=== PATIENT | female | born 1960 | race Caucasian/White ===

== ENCOUNTER 2016-04-11 09:47 | Outpatient (CLI) | payer OTHER ==
[2016-04-11 11:51] LABS: #Basophils 0.1 thou/uL (0.0-0.2); #Eosinphils 0.2 thou/uL (0.0-0.7); #Lymphocytes 2.1 thou/uL (1.20-3.40); #Monocytes 0.6 thou/uL (0.11-0.59); #Neutrophils 5.6 thou/uL (1.40-6.50); %Basophils 1.1 % (0.0-1.0); %Eosinophils 2.1 % (0.0-10.0); Hematocrit 43.9 % (36.0-47.0); Mean Platelet Volume 6.6 fL (7.4-10.4); White Blood Cell (WBC) Count 8.5 thou/uL (4.8-10.8)
[2016-04-11 11:58] LABS: ALT (SGPT) 16 U/L (0-55); AST (SGOT) 18 U/L (5-34); Alkaline Phosphatase 119 U/L (40-150); Anion Gap 15 mmol/L (10-20); BUN (Urea Nitrogen) 18 mg/dL (9.8-20.1); Bilirubin, Total 0.5 mg/dL (0.2-1.2); Calc. Creatinine Clearance 0 mL/min (70-130); Calcium 9.7 mg/dL (7.8-10.44); Carbon Dioxide 26 mmol/L (22-29); Chloride 103 mmol/L (98-107); Estimated GFR-MDRD 65; Globulin 2.9 g/dL (2.4-3.5); LDL Cholesterol, Calculated 139 mg/dL; Protein, Total 7.4 g/dL (6.0-8.3)
== END 2016-04-11 09:48 | disposition home or self-care (01) ==
LOC: HPCALD 09:47
PROVIDERS: ATTEND Physician Assistant
DX: I10 Essential (primary) hypertension (principal)
CPT/HCPCS: 36415; 80053; 80061; 84443; 85025

== ENCOUNTER 2016-06-26 13:25 | Outpatient (CLI) | payer OTHER ==
[2016-06-26 18:50] LABS: Folate (Folic Acid) 15.9 ng/mL (7.0-31.4)
== END 2016-06-26 13:26 | disposition home or self-care (01) ==
LOC: HPCALD 13:25
PROVIDERS: ATTEND Physician Assistant
DX: R25.2 Cramp and spasm (principal)
CPT/HCPCS: 36415; 82607; 82746; 83735

== ENCOUNTER 2016-07-11 09:32 | Outpatient (CLI) | payer OTHER ==
--- NOTE | 2016-07-11 19:05 | RAD ---
LUMBAR SPINE THREE VIEWS 07/11/16 Disc space narrowing is present at L4-L5. Small osteophytes are present at most levels. No fracture or dislocation was seen. There might have been an old injury to the anterior superior corner of L5. The SI joints are symmetrical. Some facet arthritis is present at L5-S1. IMPRESSION: Arthritic changes as noted, particularly with disc space narrowing at L4-L5. An MRI could be useful to look for neural impingement. POS: HOME
== END 2016-07-11 09:33 | disposition home or self-care (01) ==
LOC: BBPBJX 09:32 → BURRAD 09:33
PROVIDERS: ATTEND Physician Assistant
DX: R00.2 Palpitations (principal); R20.2 Paresthesia of skin
CPT/HCPCS: 72100; 93005; 93010

== ENCOUNTER 2017-01-11 11:44 | Emergency (ER) | payer OTHER, SELFPAY | END 2017-01-11 12:14 | disposition home or self-care (01) | LOC: BURERS 11:44 | DX: H65.93 Unspecified nonsuppurative otitis media, bilateral (principal); I10 Essential (primary) hypertension; F17.210 Nicotine dependence, cigarettes, uncomplicated | CPT/HCPCS: 99282 ==

== ENCOUNTER 2019-06-23 12:52 | Emergency (ER) | payer BC, SELFPAY | END 2019-06-23 13:10 | disposition home or self-care (01) | LOC: BURERS 12:52 | DX: R21 Rash and other nonspecific skin eruption (principal); F17.210 Nicotine dependence, cigarettes, uncomplicated; I10 Essential (primary) hypertension; J44.9 Chronic obstructive pulmonary disease, unspecified | CPT/HCPCS: 99282 ==

== ENCOUNTER 2020-08-31 11:05 | Emergency (ER) | payer SELFPAY ==
[2020-08-31 11:35] LABS: #Basophils 0.1 thou/uL (0.0-0.2); #Eosinphils 0.1 thou/uL (0.0-0.7); #Monocytes 0.8 thou/uL (0.11-0.59); #Neutrophils 6.3 thou/uL (1.40-6.50); %Basophils 1.4 % (0.0-1.0); %Eosinophils 1.1 % (0.0-10.0); %Lymphocytes 21.1 % (21.0-51.0); %Monocytes 8.6 % (0.0-10.0); %Neutrophils 67.8 % (42.0-75.0); Hemoglobin 15.6 g/dL (12.0-16.0); Mean Corpuscular HGB CONC 33.7 g/dL (32.0-36.0); Mean Corpuscular Volume 97.9 fL (78.0-98.0); Mean Platelet Volume 7.1 fL (7.4-10.4); Platelet Count 243 thou/uL (130-400); RBC Distribution Width 11.7 % (11.5-14.5); Red Blood Cell (RBC) Count 4.71 mill/uL (4.20-5.40); White Blood Cell (WBC) Count 9.2 thou/uL (4.8-10.8)
[2020-08-31] MEDS ORDERED: Nitroglycerin 0.4 MG TAB 1 EACH ONE (11:44)
[2020-08-31] MEDS ORDERED: Ondansetron PF 4 MG/2 ML Vial ONE (11:44)
[2020-08-31] MEDS ORDERED: Aspirin Chewable 81 MG TAB ONE (11:44)
[2020-08-31 11:51] LABS: ALT (SGPT) 41 U/L (8-55); AST (SGOT) 29 U/L (5-34); Albumin 4.5 g/dL (3.5-5.0); Alkaline Phosphatase 158 U/L (40-110); Anion Gap 19 mmol/L (10-20); BUN (Urea Nitrogen) 14 mg/dL (9.8-20.1); Bilirubin, Total 0.4 mg/dL (0.2-1.2); Calc. Creatinine Clearance 0 mL/min (70-130); Calcium 9.2 mg/dL (7.8-10.44); Carbon Dioxide 23 mmol/L (22-29); Chloride 98 mmol/L (98-107); Globulin 3.4 g/dL (2.4-3.5); Glucose 111 mg/dL (70-105); Lipase 33 U/L (8-78); Potassium 3.4 mmol/L (3.5-5.1); Protein, Total 7.9 g/dL (6.0-8.3); Sodium 137 mmol/L (136-145)
== END 2020-08-31 15:30 | disposition short-term general hospital (02) ==
LOC: BURERS 11:05
DX: I20.9 Angina pectoris, unspecified (principal); K21.9 Gastro-esophageal reflux disease without esophagitis; J44.9 Chronic obstructive pulmonary disease, unspecified; I10 Essential (primary) hypertension; F17.210 Nicotine dependence, cigarettes, uncomplicated; Z79.899 Other long term (current) drug therapy
CPT/HCPCS: 36415; 71045; 80053; 83690; 83880; 84484; 85025; 93005; 94760; 96374; J2405